=== PATIENT | male | born 1995 | race Caucasian/White ===

== ENCOUNTER 2018-10-09 17:59 | Emergency (ER) | payer MEDICAID, SELFPAY ==
[2018-10-09 18:00] VITALS: BP 133/82; PULSE 138; RESP 20; TEMP 36.6; O2SAT 98; BMI 29.9
--- NOTE | 2018-10-09 18:11 | EKG12_ITS ---
Test Reason : CP Blood Pressure : / mmHG Vent. Rate : 091 BPM Atrial Rate : 091 BPM P-R Int : 162 ms QRS Dur : 166 ms QT Int : 442 ms P-R-T Axes : 044 057 129 degrees QTc Int : 543 ms Normal sinus rhythm Left bundle branch block Abnormal ECG Confirmed by BLANCA MILLER, SHADY ([id number]), video news editor CRYSTAL HARO ([id number]) on 10/11/2018 4:22:52 PM Referred By: DANIELA/SVETLANA Confirmed By:SHADY RIOS MD
[2018-10-09] MEDS: Haloperidol Lactate 5 MG/ML Vial IM (18:12)
[2018-10-09] MEDS: LORazepam 2 MG/ML Syringe IV (18:15)
[2018-10-09 18:59] LABS: Alcohol, Blood (Medical)-Serum < 3.0 mg/dL
--- NOTE | 2018-10-09 19:28 | ED.RN ---
md aware that pt is unable to provide u/a at this time. no new orders given.
[2018-10-09 20:37] VITALS: BP 107/60; PULSE 84; RESP 18
[2018-10-09 20:42] LABS: Amphetamine Urine VISTA POSITIVE (<1000 ng/mL); Barbiturate Urine VISTA NEGATIVE (< 200 ng/mL); Benzodiazepine Urine VISTA NEGATIVE (< 200 ng/mL); Cocaine Urine VISTA NEGATIVE (< 300 ng/mL); Ecstacy Urine VISTA NEGATIVE (< 500 ng/mL); Methadone Urine VISTA NEGATIVE (< 300 ng/mL); PCP Urine VISTA NEGATIVE (< 25 ng/mL); THC Urine VISTA POSITIVE (< 50 ng/mL); Vista UDS pH Range 6
[2018-10-09 20:57] VITALS: BP 110/59; PULSE 88; RESP 16
--- NOTE | 2018-10-09 21:00 | ED.DCSUM_ITS ---
- ER Visit Summary Date of Service: 10/09/18 Chief Complaint: [Tachycardia and agitation] History of Present Illness: The patient is a 23 M [presents the emergency department tachycardia and agitation today. Patient presents via EMS. Patient apparently was given adenosine by EMS for the tachycardia which did not seem to make any improvement in patient's tachycardia. Patient admits to smoking marijuana that was laced with methamphetamines this evening. Patient denies any chest pain. He denies any shortness of breath. He just feels anxious and tingly. Patient is having a hard time holding still. He has some ballistic movements. Denies any recent illness. He has no medical history.] Physical Examination: HEENT-PERRLA, EOMI. Cranial nerves II through XII grossly intact. TMs clear. Mucous membranes moist. No adenopathy. Cardiovascular-regular rate and rhythm without murmur or ectopy Lungs-clear to auscultation, chest wall stable without crepitus or subcu emphysema Abdomen-normoactive bowel sounds, soft, nontender, no rebound or rigidity, no peritoneal signs. Extremities-intact ?4, normal range of motion, normal pulses, atraumatic [] Test Results: [Alcohol was negative. Tox ecology screen was positive for marijuana and amphetamines.] Emergency Department Course and Treatment: [Patient was medicated with Ativan 2 mg IV and given Haldol 5 mg IM. Patient was observed in the department for 3 hours. Patient symptoms resolved.] Treatment Plan: [Patient has a warrant for his arrest and will be turned over to care of police] Disposition: [Discharged home stable condition] Impression: [Illicit drug use-THC and methamphetamines] This note was generated with [employer] dictation software. It may contain incorrect words, spelling, and punctuation that were not noted in review of the chart prior to signing ED Disposition - Plan for ED Patient: Referrals: Care Physician,No Primary [Primary Care Provider] -
--- NOTE | 2018-10-09 21:00 | ED.DEP ---
ED Disposition - Plan for ED Patient: Instructions: ED Drug Abuse General Referrals: Care Physician,No Primary [Primary Care Provider] - 3-5 Days (josette ) Leoncio Cueva III, MD [STAFF PHYSICIAN] - 3-5 Days
== END 2018-10-09 21:40 ==
PROVIDERS: Emergency Provider Emergency Medicine
DX: F12.90 Cannabis use, unspecified, uncomplicated (principal); F15.90 Other stimulant use, unspecified, uncomplicated; Z72.0 Tobacco use
CPT/HCPCS: 80307; 80320; 93005; 96372; 96374; 99284; J7030; A4216; G0480; J0153

== ENCOUNTER 2018-12-26 20:53 | Emergency (ER) | payer MEDICAID, SELFPAY ==
[2018-12-26 20:53] VITALS: BP 135/94; PULSE 96; RESP 18; TEMP 36.6; O2SAT 98; BMI 28.5
[2018-12-26] MEDS: Mag Hydrox/Al Hydrox/Simeth 30 ML UDC PO (22:46)
[2018-12-26 22:55] LABS: Absolute Lymphocyte Count 3.33 X10^3/ul (0.83-4.51); Absolute Neutrophil Count 4.9 X10^3/uL (2.0-7.7); Basophil# 0.06 X10^3/uL; Basophil% 0.6 % (0-1); Eosinophil# 0.49 X10^3/uL; Eosinophils% 5.1 % (0-5); Hematocrit 46.6 % (40-54); Hemoglobin 15.4 g/dl (13.0-16.5); Lymphocyte # 3.33 X10^3/ul (4.0); Lymphocyte % 34.4 % (19-41); Mean Corpuscular Hgb 28.1 pg (27.0-32.0); Mean Platelet Vol. 8.9 fl (6.2-12.0); Monocyte# 0.85 X10^3/uL; Monocyte% 8.8 % (0-10); Neutrophil # 4.94 X10^3/uL (2.7-7.7); Neutrophil % 50.9 % (47-70); Platelet Count 319 K/mm3 (150-450); RBC Distribution Width CV 12.8 % (11.6-14.6); RBC Distribution Width SD 39.6 fl (35.1-43.9); Red Blood Count 5.48 M/mm3 (4.6-6.2); White Blood Count 9.7 K/mm3 (4.4-11.0)
[2018-12-26 22:56] LABS: POSITIVE COUNT NO; POSITIVE DIFFERENTIAL NO; POSITIVE MORPHOLOGY NO
[2018-12-26 23:06] LABS: AST(SGOT) 13 U/L (15-37); Alanine Aminotransfer ALT/SGPT 23 U/L (16-61); Albumin, Serum 3.6 g/dL (3.2-5.0); Alkaline Phosphatase 70 U/L (45-117); Anion Gap 6 (5-15); BUN 12 mg/dL (7-18); BUN/Creat Ratio 13.1 RATIO (10-20); Calcium,Total 8.8 mg/dL (8.5-10.1); Chloride 103 mmol/L (98-107); Creatinine, Serum 0.91 mg/dL (0.70-1.30); EST Glomerular Filtration Rate 111 mL/min (>60); Est Glom Filt Rate - Afr Amer 135 mL/min (>60); Estimated Creatinine Clearance 115.88 ml/min; Globulin 3.5 g/dL (2.2-4.2); Glucose 87 mg/dL (74-106); Lipase 112 U/L (73-393); Potassium 3.8 mmol/L (3.5-5.1); Protein, Total 7.1 g/dL (6.4-8.2); Sodium Level 143 mmol/L (136-145)
--- NOTE | 2018-12-26 23:52 | ED.VISSUMM ---
- ER Visit Summary Date of Service: 12/26/18 Chief Complaint: Abdominal pain History of Present Illness: The patient is a 23 M presenting with abdominal pain. He states this started 3 days ago. Pain is in the epigastric area. He has had nausea and vomiting x2. He has had diarrhea x1. Denies blood in his stool or emesis. Denies fever. Denies other complaints. Physical Examination: Vitals are stable. Patient is afebrile. Alert no acute distress. HEENT exam is unremarkable. Neck is supple. Lungs are clear and equal bilaterally. Heart is regular rate and rhythm. Abdomen is soft epigastric tenderness with no guarding or rebound Extremities are unremarkable. Skin is warm and dry. Remainder of exam is unremarkable. Emergency Department Course and Treatment: CBC, chemistries unremarkable. Liver lipase are normal. Patient was given a GI cocktail. On repeat evaluation his pain has resolved. His abdomen is soft and nontender. He is given a prescription for Pepcid. Advised to follow-up with his primary care physician. Advised return to ED for worsening complaints. Disposition: Discharge home Impression: Abdominal pain This note was generated with [employer] dictation software. It may contain incorrect words, spelling, and punctuation that were not noted in review of the chart prior to signing ED Disposition - Plan for ED Patient: Instructions: ED Abdominal Pain Unkn Cause Prescriptions: Famotidine [Pepcid] 20 mg PO BID #28 tablet Referrals: Vince Hays MD [Primary Care Provider] -
[2018-12-27 00:10] VITALS: BP 122/74; PULSE 67; RESP 18; O2SAT 99
== END 2018-12-27 00:13 | disposition home or self-care (01) ==
LOC: ED 21:38
PROVIDERS: Emergency Provider Emergency Medicine; Family Provider Pediatrics; PCP Pediatrics
DX: R10.13 Epigastric pain (principal); Z72.0 Tobacco use
CPT/HCPCS: 80053; 83690; 85025; 99284; A4216

== ENCOUNTER 2019-02-05 15:12 | Emergency (ER) | payer MEDICAID, SELFPAY ==
[2019-02-05 15:13] VITALS: BP 130/78; PULSE 94; RESP 16; TEMP 36.6; O2SAT 100; BMI 27.4
--- NOTE | 2019-02-05 15:26 | RAD_ITS ---
STUDY: X-RAY CHEST REASON FOR EXAM: Male, 23 years old. Chest pain TECHNIQUE: Frontal view of the chest COMPARISON: 03/21/2016. FINDINGS: The lungs are clear. There are no pleural effusions. There is no pneumothorax. The heart is enlarged, but stable in size. Again noted are sternotomy wires. The visualized osseous structures are within normal limits. RAD/Chest 1 View (Portable) IMPRESSION: No acute thoracic pathology. Electronically Signed: Juan David Blue, at 15:43 EDT Tel , Service support ,
--- NOTE | 2019-02-05 15:26 | EKG12_ITS ---
Test Reason : CP Blood Pressure : / mmHG Vent. Rate : 090 BPM Atrial Rate : 090 BPM P-R Int : 152 ms QRS Dur : 170 ms QT Int : 428 ms P-R-T Axes : 030 027 150 degrees QTc Int : 523 ms Normal sinus rhythm Left bundle branch block Abnormal ECG Confirmed by BLANCA MILLER, SHADY ([id number]), editorial director ALLYSSA ALCANTARA ([id number]) on 02/08/2019 2:11:43 PM Referred By: KELL Confirmed By:SHADY RIOS MD
[2019-02-05] MEDS: LORazepam 1 MG Tablet PO (15:30)
[2019-02-05 15:36] LABS: Absolute Lymphocyte Count 2.22 X10^3/ul (0.83-4.51); Absolute Neutrophil Count 4.9 X10^3/uL (2.0-7.7); Basophil# 0.06 X10^3/uL; Basophil% 0.8 % (0-1); Eosinophil# 0.15 X10^3/uL; Eosinophils% 1.9 % (0-5); Hematocrit 47.9 % (40-54); Hemoglobin 16.3 g/dl (13.0-16.5); Lymphocyte # 2.22 X10^3/ul (4.0); Lymphocyte % 28.1 % (19-41); Mean Corpuscular Hgb 28.4 pg (27.0-32.0); Mean Corpuscular Volume 83.6 fL (80-94); Mean Platelet Vol. 9.1 fl (6.2-12.0); Monocyte# 0.56 X10^3/uL; Monocyte% 7.1 % (0-10); Platelet Count 340 K/mm3 (150-450); Red Blood Count 5.73 M/mm3 (4.6-6.2); White Blood Count 7.9 K/mm3 (4.4-11.0)
[2019-02-05 15:38] LABS: POSITIVE COUNT NO; POSITIVE DIFFERENTIAL NO; POSITIVE MORPHOLOGY NO
[2019-02-05 15:47] LABS: Anion Gap 7 (5-15); BUN 21 mg/dL (7-18); BUN/Creat Ratio 16.4 RATIO (10-20); Calcium,Total 9.4 mg/dL (8.5-10.1); Chloride 107 mmol/L (98-107); Creatinine, Serum 1.28 mg/dL (0.70-1.30); EST Glomerular Filtration Rate 75 mL/min (>60); Est Glom Filt Rate - Afr Amer 91 mL/min (>60); Estimated Creatinine Clearance 79.41 ml/min; Glucose 65 mg/dL (74-106); Potassium 3.2 mmol/L (3.5-5.1); Sodium Level 142 mmol/L (136-145)
[2019-02-05 16:01] VITALS: BP 130/74; PULSE 76; RESP 20; O2SAT 100
--- NOTE | 2019-02-05 16:43 | ED.VISSUMM ---
- ER Visit Summary Date of Service: 02/05/19 Chief Complaint: Chest pain History of Present Illness: The patient is a 23 M who states that several hours (3-4) he smoked and snorted methamphetamines. He states he has subsequently felt his heart beating stronger faster and now has a aching chest pain. He reports a cardiac history having had open heart surgery around the age of 17. He tells me it was for what sounds like hypertrophic cardiomyopathy. He is not currently see a transmitter chief. He does not see a family doctor. He is supposed to be taking aspirin but does not. He is worried he may . He states that he is interested in rehab and plans to go to rehab on Thursday when his [id number] goes. Physical Examination: Afebrile vital signs are stable Gen: Well-nourished well-developed Head: Normocephalic atraumatic Eyes: Perrl EOMI ENT: TMs clear no rhinorrhea moist mucous membranes Neck: Supple no lymphadenopathy no JVD nontender CVS: Regular rate rhythm no murmurs normal S1-S2 Respiratory: No distress clear to auscultation bilaterally chest nontender Abdomen: Soft nontender nondistended normal bowel sounds no masses Back: Nontender Extremity: Nontender no edema Skin: Normal color no rash Neuro: alert orientated ?3 CN II-XII intact normal strength sensation cerebellar Psych: Patient appears anxious Test Results: EKG shows a sinus rhythm at a rate of 90 with a left bundle branch block. This is a known left bundle branch block. CBC and chemistry showed a potassium 3.2 glucose of 65. Troponin is negative. Chest x-ray is negative. Emergency Department Course and Treatment: Mario received a p.o. Ativan and offered food. He refused to eat anything. He spelt the orange juice that we tried to give him. I am going to give him an amp of D50. When I go to speak with the patient and reexamined him him he is completely disinterested in what I have to say turns away from me and closes his eyes. Patient will be discharged home with clear instructions to stop doing illegal drugs that will kill him. He has a plan for rehab and I strongly suggest he goes through with it. Impression: 1. Chest pain secondary to methamphetamine abuse 2. Hypoglycemia This note was generated with [employer] software. It may contain incorrect words, spelling, and punctuation that were not noted in review of the chart prior to signing ED Disposition - Plan for ED Patient: Disposition: Home or Assisted Living Instructions: Understanding Methamphetamine Abuse and Addiction Referrals: [facility] [STAFF PHYSICIAN] -
[2019-02-05] MEDS: Dextrose 50%-Water 25 GM/50 ML DISP.SYRIN IV (16:54)
--- NOTE | 2019-02-05 16:54 | ED.RN ---
PT REFUSING TO EAT SANDWICH OR COOKIE; DID DRINK OJ. NOTIFIED AND ORDER OBTAINED
[2019-02-05 17:23] VITALS: BP 115/65; PULSE 70; RESP 19; O2SAT 97
== END 2019-02-05 17:27 | disposition home or self-care (01) ==
PROVIDERS: Emergency Provider Emergency Medicine
DX: R07.9 Chest pain, unspecified (principal); F15.10 Other stimulant abuse, uncomplicated; E16.2 Hypoglycemia, unspecified; I44.7 Left bundle-branch block, unspecified; Z91.14 Patient's other noncompliance with medication regimen; Z72.0 Tobacco use
CPT/HCPCS: 71045; 80048; 84484; 85025; 93005; 96374; 99284

== ENCOUNTER 2019-03-27 12:10 | Emergency (ER) | payer MEDICAID, SELFPAY ==
[2019-03-27] VITALS (11 sets, daily range): BP systolic 102–119; BP diastolic 56–72; PULSE 56–118; RESP 14–38; TEMP 36.6; O2SAT 97–100; BMI 25.5
--- NOTE | 2019-03-27 12:21 | EKG12_ITS ---
Test Reason : ARRHYTHMIA Blood Pressure : / mmHG Vent. Rate : 111 BPM Atrial Rate : 111 BPM P-R Int : 136 ms QRS Dur : 154 ms QT Int : 408 ms P-R-T Axes : 038 031 195 degrees QTc Int : 554 ms Sinus tachycardia with Premature ventricular complexes or Fusion complexes Left bundle branch block Abnormal ECG Confirmed by JONAH MILLER, BERNIE ([id number]), editor producer ALLYSSA ALCANTARA ([id number]) on 03/29/2019 11:31:18 AM Referred By: KELL Confirmed By:BERNIE MCKENZIE MD
--- NOTE | 2019-03-27 12:21 | RAD_ITS ---
STUDY: X-RAY CHEST REASON FOR EXAM: Male, 23 years old. History of heart surgery 6 years ago for valve reconstruction. Shortness of breath with chest pain. TECHNIQUE: Single frontal view of the chest. COMPARISON: February 05, 2019 FINDINGS: Stable mild hyperexpansion. There is no demonstrated pleural abnormality. Stable sternotomy wires with borderline cardiomegaly. Normal mediastinum and catherine. Normal visualized pulmonary arteries. Normal visualized aortic arch and descending thoracic aorta. Normal visualized thoracic spine. Normal visualized ribs, clavicles, and shoulders. There is no demonstrated abnormality of the visualized soft tissue structures of the upper abdomen. RAD/Chest 1 View (Portable) IMPRESSION: No interval change and no acute superimposed finding. Electronically Signed: Christophe Jacob MD at 12:56 EDT , Service support ,
--- NOTE | 2019-03-27 12:22 | ED.DCSUM_ITS ---
History of Present Illness Chief Complaint: Chest Pain Informant: Patient, EMS Onset: Hours - 1 Activity at onset: - - about 20-30 min after smoking methamphetamine and marijuana Timing: Continuous Quality: - - can't breath Current Severity: Severe Maximum Severity: Severe Worsened by: Nothing Relieved by: Nothing Associated Symptoms: - - racing heartbeat, tingling left chest. Negative for: Cough Chest Pain: None Narrative: Patient states he had open heart cardiac reconstructive surgery several years ago. He denies having any other medical problems. Past Medical History - Allergies and Home Meds Allergies/Adverse Reactions: Allergies No Known Allergies Allergy (Verified 03/27/19 12:18) Primary Care Physician: Care Physician,No Primary [Primary Care Provider] - Surgical History: - - Open heart surgery, details unknown Smoking Status: Current every day smoker Drugs: Marijuana, - - Methamphetamine; no other known drugs Review of Systems General: Reports: Malaise. Denies: Chills, Fever, Sweats Eyes: Denies: Visual changes - bilaterally, Diplopia ENT: Denies: Rhinorrhea, Sore throat Cardiovascular: Reports: Heart racing. Denies: Chest pain Respiratory: Reports: Dyspnea. Denies: Cough Gastrointestinal: Denies: Abdominal pain, Nausea, Vomiting, Diarrhea, Melena, Hematochezia Genitourinary: Denies: Dysuria, Hematuria, Frequency Musculoskeletal: Denies: Back pain, Swelling, Extremity Pain Skin: Denies: Rash, Wounds Neurological: Reports: Parasthesia - Left chest only. No numbness in extremities.. Denies: Headache, Weakness Psych: Reports: Anxiety. Denies: Suicidal thoughts Physical Exam Vital Signs/Narrative: Vital Signs Temp Pulse Resp BP Pulse Ox 03/27/19 12:11 97.8 F 118 H 38 H 113/64 100 Inital Vital Signs reviewed: Yes General: Well nourished, Well developed, Acute Distress - Respiratory Head: Normocephalic, Atraumatic Eyes: Perrl, EOMI ENT: Moist mucous membranes, No rhinorrhea, - - No stridor Neck: Supple, Nontender, No JVD Cardiovascular: Regular rate, Regular rhythm, No murmurs, Tachycardia Respiratory: CTA bilaterally - With equal breath sounds bilaterally, trachea midline, Chest nontender Abdomen: Soft, Nontender, Nondistended, Normal bowel sounds Back: Nontender, Normal Inspection Extremities: Nontender, No edema. Negative for: Calf Tenderness Skin: Normal color, No rash, No Trauma Neurological: Alert, Oriented x3, Cranial nerves II-XII grossly intact, Normal Strength, Normal Sensation Psychological: - - Very anxious Diagnostic/Tx/Re-eval Impressions Chest X-Ray 03/27/19 12:21 IMPRESSION: No interval change and no acute superimposed finding. Electronically Signed: Christophe Jacob MD at 12:56 EDT , Service support , Laboratory Tests 03/27/19 03/27/19 03/27/19 Range/Units 17:25 14:54 12:15 WBC (4.4-11.0) K/mm3 RBC (4.6-6.2) M/mm3 Hgb (13.0-16.5) g/dL Hct (40-54) % MCV (80-94) fL MCH (27.0-32.0) pg MCHC (32-36) g/dL RDW Std Deviation (35.1-43.9) fl RDW Coeff of Leighton (11.6-14.6) % Plt Count (150-450) K/mm3 MPV (6.2-12.0) fl Immature Gran % (Auto) (0.0-0.9) % Neut % (Auto) (47-70) % Lymph % (Auto) (19-41) % [place] % (Auto) (0-10) % Eos % (Auto) (0-5) % Baso % (Auto) (0-1) % Absolute Neuts (auto) (2.0-7.7) X10^3/uL Absolute Lymphs (auto) (0.83-4.51) X10^3/uL Nucleated RBC % (0-5) % Sodium 143 (136-145) mmol/L Potassium 3.8 3.0 L (3.5-5.1) mmol/L Chloride 109 H (98-107) mmol/L Carbon Dioxide 22.0 (21.0-32.0) mmol/L Anion Gap 12 (5-15) BUN 20 H (7-18) mg/dL Creatinine 1.03 (0.70-1.30) mg/dL Estim Creat Clear Calc 102.38 ml/min Est GFR (MDRD) Af Amer 117 (>60) mL/min Est GFR (MDRD) Non-Af 97 (>60) mL/min BUN/Creatinine Ratio 19.4 (10-20) RATIO Glucose 99 (74-106) mg/dL Calcium 9.0 (8.5-10.1) mg/dL Troponin I < 0.015 < 0.015 (<0.045) ng/mL Urine Opiates Screen NEGATIVE (< 300 ng/mL) Urine Methadone Screen NEGATIVE (< 300 ng/mL) Ur Barbiturates Screen NEGATIVE (< 200 ng/mL) Ur Phencyclidine Scrn NEGATIVE (< 25 ng/mL) Ur Amphetamines Screen POSITIVE H (<1000 ng/mL) U Methamphetamin-MDMA POSITIVE H (< 500 ng/mL) U Benzodiazepines Scrn NEGATIVE (< 200 ng/mL) Urine Cocaine Screen NEGATIVE (< 300 ng/mL) U Cannabinoids Screen POSITIVE H (< 50 ng/mL) Ur Drug Screen Comment 03/27/19 Range/Units 12:15 WBC 8.1 (4.4-11.0) K/mm3 RBC 4.78 (4.6-6.2) M/mm3 Hgb 13.7 (13.0-16.5) g/dL Hct 40.3 (40-54) % MCV 84.3 (80-94) fL MCH 28.7 (27.0-32.0) pg MCHC 34.0 (32-36) g/dL RDW Std Deviation 39.8 (35.1-43.9) fl RDW Coeff of Leighton 13.0 (11.6-14.6) % Plt Count 377 (150-450) K/mm3 MPV 8.6 (6.2-12.0) fl Immature Gran % (Auto) 0.400 (0.0-0.9) % Neut % (Auto) 58.3 (47-70) % Lymph % (Auto) 31.3 (19-41) % [place] % (Auto) 7.8 (0-10) % Eos % (Auto) 1.6 (0-5) % Baso % (Auto) 0.6 (0-1) % Absolute Neuts (auto) 4.7 (2.0-7.7) X10^3/uL Absolute Lymphs (auto) 2.54 (0.83-4.51) X10^3/uL Nucleated RBC % 0 (0-5) % Sodium (136-145) mmol/L Potassium (3.5-5.1) mmol/L Chloride (98-107) mmol/L Carbon Dioxide (21.0-32.0) mmol/L Anion Gap (5-15) BUN (7-18) mg/dL Creatinine (0.70-1.30) mg/dL Estim Creat Clear Calc ml/min Est GFR (MDRD) Af Amer (>60) mL/min Est GFR (MDRD) Non-Af (>60) mL/min BUN/Creatinine Ratio (10-20) RATIO Glucose (74-106) mg/dL Calcium (8.5-10.1) mg/dL Troponin I (<0.045) ng/mL Urine Opiates Screen (< 300 ng/mL) Urine Methadone Screen (< 300 ng/mL) Ur Barbiturates Screen (< 200 ng/mL) Ur Phencyclidine Scrn (< 25 ng/mL) Ur Amphetamines Screen (<1000 ng/mL) U Methamphetamin-MDMA (< 500 ng/mL) U Benzodiazepines Scrn (< 200 ng/mL) Urine Cocaine Screen (< 300 ng/mL) U Cannabinoids Screen (< 50 ng/mL) Ur Drug Screen Comment - Rhythm Strip Rhythm Strip: Sinus Tach Rate: 111 Ectopy: None - EKG Initial EKG Interpretation: Sinus Tachycardia, LBBB Prior: Unchanged Treatment - Dyspnea: Oxygen, - - ativan - Medical Decision Making Patient was given Ativan, his chest x-ray shows no pneumothorax or other acute abnormality. This helped a lot with his symptoms, he said he felt like his heart was beating hard, but not racing or skipping anymore. He states he is having some tingling in his left arm as well. His troponin is negative his EKG shows a stable left bundle branch block which appears to be a result of his cardiac surgery, details of this are unknown. However, he became sleepy and slept much of the time in the ER. He became difficult to arouse and so continued to be monitored. His vital signs remained very stable, he did not have any tachycardia recur. At one point, he was borderline bradycardic and it was seen that he was in a junctional rhythm temporarily. He would go into this for less than 10 seconds at a time, did not seem to have any symptoms or hypotension with it. It is possible this happens to him often, at baseline. His troponin was repeated and was again negative. I also repeated his potassium, his initial reading was 3.0 which I suspected was from shift caused by acute respiratory alkalosis since he was hyperventilating and extremely anxious. The repeat was 3.8, within normal limits, supporting this. He was observed for a total of 10 hours and discharged home in stable improved condition, ambulatory. ED Disposition - Plan for ED Patient: Disposition: Home or Assisted Living Diagnosis: Methamphetamine abuse Instructions: Understanding Methamphetamine Abuse and Addiction Referrals: [facility] [STAFF PHYSICIAN] - As soon as possible (for help with drug addiction)
[2019-03-27] MEDS: LORazepam 2 MG/ML Syringe 1 MG IV (12:25)
--- NOTE | 2019-03-27 12:31 | ED.RN ---
hyperventilation. didier extremities tingling and hands cramping per pt. ativan given encouraged slow breathing pt calmed. hr came down from 120s to 90s. resting quietly.
[2019-03-27 12:33] LABS: Absolute Lymphocyte Count 2.54 X10^3/uL (0.83-4.51); Absolute Neutrophil Count 4.7 X10^3/uL (2.0-7.7); Basophil# 0.05 X10^3/uL; Basophil% 0.6 % (0-1); Eosinophil# 0.13 X10^3/uL; Eosinophils% 1.6 % (0-5); Hematocrit 40.3 % (40-54); Hemoglobin 13.7 g/dL (13.0-16.5); Lymphocyte # 2.54 X10^3/ul (4.0); Lymphocyte % 31.3 % (19-41); Mean Corpuscular Hgb 28.7 pg (27.0-32.0); Mean Corpuscular Volume 84.3 fL (80-94); Mean Platelet Vol. 8.6 fl (6.2-12.0); Monocyte# 0.63 X10^3/uL; Monocyte% 7.8 % (0-10); NRBC Flagged by Analyzer 0 % (0-5); Neutrophil # 4.73 X10^3/uL (2.7-7.7); Neutrophil % 58.3 % (47-70); Platelet Count 377 K/mm3 (150-450); RBC Distribution Width SD 39.8 fl (35.1-43.9); Red Blood Count 4.78 M/mm3 (4.6-6.2); White Blood Count 8.1 K/mm3 (4.4-11.0)
--- NOTE | 2019-03-27 12:41 | ED.RN ---
sats 69% while resting on ra. paced on 2l o2. sats 95%. no distress noted
[2019-03-27 12:46] LABS: Anion Gap 12 (5-15); BUN 20 mg/dL (7-18); BUN/Creat Ratio 19.4 RATIO (10-20); Chloride 109 mmol/L (98-107); Creatinine, Serum 1.03 mg/dL (0.70-1.30); EST Glomerular Filtration Rate 97 mL/min (>60); Est Glom Filt Rate - Afr Amer 117 mL/min (>60); Estimated Creatinine Clearance 102.38 ml/min; Glucose 99 mg/dL (74-106); Sodium Level 143 mmol/L (136-145)
[2019-03-27] MEDS: 0.9% Normal Saline 1,000 ML 999 ML IV (13:06)
--- NOTE | 2019-03-27 13:45 | ED.RN ---
pt drowsy from ativan. denies ability to urinate at this time
--- NOTE | 2019-03-27 14:38 | ED.RN ---
PT NOT STAYING AWAKE/COOPERATING FOR URINE SAMPLE AT THIS TIME.
[2019-03-27 15:39] LABS: Amphetamine Urine VISTA POSITIVE (<1000 ng/mL); Barbiturate Urine VISTA NEGATIVE (< 200 ng/mL); Benzodiazepine Urine VISTA NEGATIVE (< 200 ng/mL); Cocaine Urine VISTA NEGATIVE (< 300 ng/mL); Ecstacy Urine VISTA POSITIVE (< 500 ng/mL); Methadone Urine VISTA NEGATIVE (< 300 ng/mL); PCP Urine VISTA NEGATIVE (< 25 ng/mL); THC Urine VISTA POSITIVE (< 50 ng/mL); Vista UDS pH Range 6
--- NOTE | 2019-03-27 16:01 | ED.RN ---
PT RESTING IN BED, NO SIGNS OF DISTRESS.
[2019-03-27 17:54] LABS: Potassium 3.8 mmol/L (3.5-5.1)
--- NOTE | 2019-03-27 21:30 | ED.RN ---
PT AWAKES TO NAME, ORIENTED TO PERSON AND PLACE, DENIES CURRENT NEEDS. CLOSES EYES SOON THIS RN STOP TALKING. UPDATED.
== END 2019-03-27 22:25 | disposition home or self-care (01) ==
PROVIDERS: Emergency Provider Emergency Medicine
DX: F15.10 Other stimulant abuse, uncomplicated (principal); I44.7 Left bundle-branch block, unspecified; F12.90 Cannabis use, unspecified, uncomplicated; F17.200 Nicotine dependence, unspecified, uncomplicated
CPT/HCPCS: 71045; 80048; 80307; 84132; 84484; 85025; 93005; 96361; 96374; 99285; P9612; A4216

== ENCOUNTER 2019-06-08 00:16 | Emergency (ER) | payer SELFPAY ==
[2019-05-09 14:55] VITALS: BMI 27.4
[2019-06-08 00:17] VITALS: BP 143/87; PULSE 101; RESP 16; TEMP 36.6; O2SAT 100; BMI 25.3
--- NOTE | 2019-06-08 00:28 | RAD_ITS ---
STUDY: X-RAY CHEST REASON FOR EXAM: Male, 23 years old. Pain TECHNIQUE: PA and lateral COMPARISON: 05/09/2019 FINDINGS: The lungs are clear and expanded. There is no demonstrated pleural abnormality. Normal size heart. Normal mediastinum and catherine. Normal visualized pulmonary arteries. Normal visualized aortic arch and descending thoracic aorta. Normal visualized thoracic spine. Normal visualized ribs, clavicles, and shoulders. There is no demonstrated abnormality of the visualized soft tissue structures of the upper abdomen. RAD/Chest PA and Lateral IMPRESSION: Normal x-ray examination of the chest. Electronically Signed: Daniel Huizar MD at 1:10 EST , Service support ,
--- NOTE | 2019-06-08 00:28 | EKG12_ITS ---
Test Reason : CP Blood Pressure : / mmHG Vent. Rate : 098 BPM Atrial Rate : 098 BPM P-R Int : 154 ms QRS Dur : 154 ms QT Int : 400 ms P-R-T Axes : 047 036 134 degrees QTc Int : 510 ms Normal sinus rhythm Left bundle branch block Abnormal ECG Confirmed by ISRRAEL DURAN ([id number]), map editor ALLYSSA ALCANTARA ([id number]) on 06/10/2019 11:15:18 AM Referred By: MELANIE Confirmed By:ISRRAEL DURAN
--- NOTE | 2019-06-08 00:31 | ED.VIS.GEN ---
History of Present Illness Chief Complaint: Chest Pain Narrative: Patient is a 23-year-old male who presents with chest pain after methamphetamine use. He has multiple prior visits with similar presentations. After methamphetamine use he developed left arm tingling and left-sided chest pain. Currently his symptoms have improved and he only complains of a little bit of tightness on the left side of his chest. He does have a history of prior open heart surgery. He does not know exactly what this was for but based on his description of enlarged heart muscle I suspect this was related to hypertrophic obstructive cardiomyopathy. Past Medical History - Allergies and Home Meds Allergies/Adverse Reactions: Allergies No Known Allergies Allergy (Verified 05/09/19 14:55) Primary Care Physician: NOT,DEFINED [NON-STAFF] - Prior records reviewed: Yes Past Medical History: - - heart problem likely HOCM Surgical History: - - Open heart surgery, details unknown Smoking Status: Current every day smoker Review of Systems All systems negative except as indicated General: Denies: Fever Cardiovascular: Reports: Chest pain Respiratory: Denies: Dyspnea Gastrointestinal: Denies: Nausea, Vomiting Neurological: Reports: - - Dizziness Physical Exam Vital Signs/Narrative: Vital Signs Temp Pulse Resp BP Pulse Ox 06/08/19 00:17 98 F 101 H 16 143/87 H 100 Inital Vital Signs reviewed: Yes General: Well nourished, Well developed Head: Normocephalic Eyes: EOMI ENT: Moist mucous membranes Neck: Supple Cardiovascular: Regular rate, Regular rhythm Respiratory: No distress, CTA bilaterally Abdomen: Soft Extremities: Nontender, - - 2+ symmetric radial pulses Skin: Normal color Neurological: Alert Psychological: Normal affect Diagnostic/Tx/Re-eval Impressions Chest X-Ray 06/08/19 00:28 IMPRESSION: Normal x-ray examination of the chest. Electronically Signed: Daniel Huizar MD at 1:10 EST , Service support , 06/08/19 00:28 Chest PA and Lateral [RAD] Stat Laboratory Results 06/08/19 06/08/19 00:46 00:46 WBC 8.1 RBC 4.74 Hgb 13.7 Hct 42.4 MCV 89.5 MCH 28.9 MCHC 32.3 RDW Std Deviation 43.1 RDW Coeff of Leighton 13.2 Plt Count 300 MPV 8.3 Immature Gran % (Auto) 0.400 Neut % (Auto) 57.4 Lymph % (Auto) 32.5 [place] % (Auto) 6.6 Eos % (Auto) 2.2 Baso % (Auto) 0.9 Absolute Neuts (auto) 4.6 Absolute Lymphs (auto) 2.63 Nucleated RBC % 0 Sodium 143 Potassium 3.7 Chloride 108 H Carbon Dioxide 30.0 Anion Gap 5 BUN 15 Creatinine 1.00 Estim Creat Clear Calc 101.65 Est GFR (MDRD) Af Amer 121 Est GFR (MDRD) Non-Af 100 BUN/Creatinine Ratio 15.1 Glucose 98 Calcium 8.9 Troponin I < 0.015 - Medical Decision Making EKG shows sinus rhythm at a rate of 98 with a left bundle branch block. Laboratory studies and imaging negative as above. Patient has had multiple prior similar presentations associate with methamphetamine use. He does not have any evidence of cardiac ischemia at this time. He has no ischemic changes on EKG. His troponin is negative. His symptoms have improved. He was counseled on drug cessation and was discharged. ED Disposition - Plan for ED Patient: Disposition: Home or Assisted Living Diagnosis: Methamphetamine abuse, Chest pain Instructions: CHEST PAIN, Uncertain Cause, Drug Abuse Referrals: NOT,DEFINED [NON-STAFF] - [facility] [STAFF PHYSICIAN] -
[2019-06-08 00:49] VITALS: O2SAT 100
[2019-06-08 00:58] LABS: Absolute Lymphocyte Count 2.63 X10^3/uL (0.83-4.51); Absolute Neutrophil Count 4.6 X10^3/uL (2.0-7.7); Basophil# 0.07 X10^3/uL; Basophil% 0.9 % (0-1); Eosinophil# 0.18 X10^3/uL; Eosinophils% 2.2 % (0-5); Hematocrit 42.4 % (40-54); Hemoglobin 13.7 g/dL (13.0-16.5); Lymphocyte # 2.63 X10^3/ul (4.0); Lymphocyte % 32.5 % (19-41); Mean Corp Hgb Conc 32.3 g/dL (32-36); Mean Corpuscular Hgb 28.9 pg (27.0-32.0); Mean Corpuscular Volume 89.5 fL (80-94); Mean Platelet Vol. 8.3 fl (6.2-12.0); Monocyte# 0.53 X10^3/uL; Monocyte% 6.6 % (0-10); NRBC Flagged by Analyzer 0 % (0-5); Neutrophil # 4.64 X10^3/uL (2.7-7.7); Neutrophil % 57.4 % (47-70); Platelet Count 300 K/mm3 (150-450); RBC Distribution Width CV 13.2 % (11.6-14.6); RBC Distribution Width SD 43.1 fl (35.1-43.9); Red Blood Count 4.74 M/mm3 (4.6-6.2); White Blood Count 8.1 K/mm3 (4.4-11.0)
[2019-06-08 01:12] LABS: Anion Gap 5 (5-15); BUN 15 mg/dL (7-18); BUN/Creat Ratio 15.1 RATIO (10-20); Calcium,Total 8.9 mg/dL (8.5-10.1); Chloride 108 mmol/L (98-107); EST Glomerular Filtration Rate 100 mL/min (>60); Est Glom Filt Rate - Afr Amer 121 mL/min (>60); Estimated Creatinine Clearance 101.65 ml/min; Glucose 98 mg/dL (74-106); Potassium 3.7 mmol/L (3.5-5.1); Sodium Level 143 mmol/L (136-145)
[2019-06-08 01:41] VITALS: BP 138/74; PULSE 87; RESP 15; O2SAT 98
== END 2019-06-08 01:41 | disposition home or self-care (01) ==
PROVIDERS: Emergency Provider Emergency Medicine
DX: F15.10 Other stimulant abuse, uncomplicated (principal); R07.89 Other chest pain; I44.7 Left bundle-branch block, unspecified; F17.200 Nicotine dependence, unspecified, uncomplicated
CPT/HCPCS: 71046; 80048; 84484; 85025; 93005; 99284; A4216

== ENCOUNTER 2020-05-11 13:36 | Observation (INO) | payer MEDICAID, SELFPAY ==
[2019-08-27 10:02] VITALS: BMI 26.9
[2020-05-11] VITALS (14 sets, daily range): BP systolic 114–150; BP diastolic 61–117; PULSE 54–92; RESP 12–28; TEMP 35.8–37; O2SAT 98–100; BMI 27.5; BMI 26.5
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
[2020-05-11] MEDS: fentaNYL 100 MCG/2 ML Ampul 50 MCG IV ×2 (13:47→14:48)
[2020-05-11] MEDS: Diphth,Pertuss(Acell),Tet Vac 0.5 ML Vial IM (13:48)
--- NOTE | 2020-05-11 13:50 | EKG12_ITS ---
Test Reason : GS Blood Pressure : / mmHG Vent. Rate : 081 BPM Atrial Rate : 081 BPM P-R Int : 146 ms QRS Dur : 156 ms QT Int : 460 ms P-R-T Axes : 000 101 174 degrees QTc Int : 534 ms Normal sinus rhythm Left bundle branch block Abnormal ECG When compared with ECG of 11-MAY-2020 13:50, MANUAL COMPARISON REQUIRED, DATA IS UNCONFIRMED Confirmed by BLANCA MILLER, SHADY ([id number]), scientific publications editor JUSTICE DIXON ([id number] on 05/31/2020 2:35:08 PM Referred By: Confirmed By:SHADY RIOS MD
--- NOTE | 2020-05-11 13:52 | EKG12_ITS ---
Test Reason : Blood Pressure : / mmHG Vent. Rate : 081 BPM Atrial Rate : 081 BPM P-R Int : 164 ms QRS Dur : 152 ms QT Int : 450 ms P-R-T Axes : 094 107 137 degrees QTc Int : 522 ms Suspect arm lead reversal, interpretation assumes no reversal Normal sinus rhythm Left bundle branch block Abnormal ECG When compared with ECG of 27-AUG-2019 10:13, Premature atrial complexes are no longer Present QRS axis Shifted right T wave inversion less evident in Lateral leads Confirmed by BLANCA MILLER, SHADY ([id number]), commercial production editor JUSTICE DIXON ([id number]) on 05/31/2020 2:34:53 PM Referred By: Confirmed By:SHADY RIOS MD
[2020-05-11] MEDS: Cefazolin 1 GM/50 ML BAG IV ×2 (13:57→21:49)
[2020-05-11 13:59] LABS: Absolute Lymphocyte Count 3.55 X10^3/uL (0.83-4.51); Absolute Neutrophil Count 4.2 X10^3/uL (2.0-7.7); Basophil# 0.05 X10^3/uL; Basophil% 0.6 % (0-1); Eosinophil# 0.37 X10^3/uL; Eosinophils% 4.1 % (0-5); Hematocrit 46.2 % (40-54); Hemoglobin 14.7 g/dL (13.0-16.5); Lymphocyte # 3.55 X10^3/ul (4.0); Lymphocyte % 39.6 % (19-41); Mean Corp Hgb Conc 31.8 g/dL (32-36); Mean Corpuscular Hgb 28.4 pg (27.0-32.0); Mean Corpuscular Volume 89.4 fL (80-94); Mean Platelet Vol. 8.2 fl (6.2-12.0); Monocyte# 0.74 X10^3/uL; Monocyte% 8.3 % (0-10); NRBC Flagged by Analyzer 0 % (0-5); Neutrophil # 4.23 X10^3/uL (2.7-7.7); Neutrophil % 47.2 % (47-70); Platelet Count 476 K/mm3 (150-450); RBC Distribution Width CV 12.2 % (11.6-14.6); Red Blood Count 5.17 M/mm3 (4.6-6.2)
[2020-05-11 14:12] LABS: Anion Gap 6 (5-15); BUN 18 mg/dL (7-18); BUN/Creat Ratio 17.3 RATIO (10-20); Calcium,Total 9.2 mg/dL (8.5-10.1); Chloride 108 mmol/L (98-107); Creatinine, Serum 1.04 mg/dL (0.70-1.30); EST Glomerular Filtration Rate 94 mL/min (>60); Est Glom Filt Rate - Afr Amer 114 mL/min (>60); Estimated Creatinine Clearance 96.92 ml/min; Glucose 97 mg/dL (74-106); Potassium 3.6 mmol/L (3.5-5.1); Sodium Level 143 mmol/L (136-145)
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
[2020-05-11 14:31] LABS: Alcohol, Blood (Medical)-Serum < 3.0 mg/dL
[2020-05-11 16:22] LABS: Amphetamine Urine VISTA POSITIVE (<1000 ng/mL); Barbiturate Urine VISTA NEGATIVE (< 200 ng/mL); Benzodiazepine Urine VISTA NEGATIVE (< 200 ng/mL); Cocaine Urine VISTA NEGATIVE (< 300 ng/mL); Ecstacy Urine VISTA POSITIVE (< 500 ng/mL); Methadone Urine VISTA NEGATIVE (< 300 ng/mL); PCP Urine VISTA NEGATIVE (< 25 ng/mL); THC Urine VISTA NEGATIVE (< 50 ng/mL); Vista UDS pH Range 6
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
--- NOTE | 2020-05-11 17:29 | EKG12_ITS ---
Test Reason : FOOT TRAUMA Blood Pressure : / mmHG Vent. Rate : 058 BPM Atrial Rate : 058 BPM P-R Int : 184 ms QRS Dur : 162 ms QT Int : 502 ms P-R-T Axes : 000 100 161 degrees QTc Int : 492 ms Sinus bradycardia Left bundle branch block Abnormal ECG Confirmed by WALE MILLER, RONEL ([id number]), manuscript editor GERMÁN HUTCHINSON ([id number]) on 05/25/2020 9:47:00 A M Referred By: CARLOS Confirmed By:HAL ECHEVARRIA MD
[2020-05-11] MEDS: Bupivacaine 0.25% 30 ML Vial (18:10)
[2020-05-11] MEDS: Lactated Ringers 1,000 ML 100 ML IV (18:30)
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
[2020-05-11] MEDS: Acetaminophen 325 MG Tablet 650 MG PO (20:40)
[2020-05-12 03:58] VITALS: BP 119/79; PULSE 63; RESP 16; TEMP 36.6; O2SAT 99
[2020-05-12] MEDS: Lactated Ringers 1,000 ML 100 ML IV (03:59)
[2020-05-12] MEDS: Cefazolin 1 GM/50 ML BAG IV (06:14)
[2020-05-12] MEDS: Acetaminophen 325 MG Tablet 650 MG PO ×2 (06:20→21:58)
[2020-05-12 10:21] VITALS: BP 124/74; PULSE 88; RESP 20; TEMP 36.7; O2SAT 99
[2020-05-12] MEDS: oxyCODONE 5 MG Tablet PO ×2 (10:31→18:12)
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
[2020-05-12 14:15] VITALS: O2SAT 98
[2020-05-12] MEDS: 0.9% Normal Saline 1,000 ML 15 ML IV (15:31)
[2020-05-12 15:35] VITALS: BP 128/81; PULSE 76; RESP 16; TEMP 36.9; O2SAT 98
[2020-05-12 21:40] VITALS: BP 129/82; PULSE 100; RESP 16; TEMP 36.6; O2SAT 99
[2020-05-13 03:38] VITALS: BP 139/92; PULSE 79; RESP 16; TEMP 36.6; O2SAT 99
[2020-05-13] MEDS: oxyCODONE 5 MG Tablet PO ×2 (05:17→11:23)
[2020-05-13 07:45] VITALS: O2SAT 97
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
[2020-05-13 10:04] VITALS: BP 130/85; PULSE 92; RESP 14; TEMP 36.8; O2SAT 99
--- NOTE | 2020-05-13 12:06 | PCM.DC.POD ---
Discharge Activity: May Not Drive, Use Crutches Weight Bearing Status: No weight bearing - No weightbearing left foot Keep extremity elevated above heart level: Left Leg - Keep left foot elevated as much as possible Call your doctor if your incision/area has: Continuous Slow Oozing, Sudden Increased Bleeding, Foul Smelling Discharge Call your doctor if you observe: Fever of 101 or Higher, Shortness of breath, Chest pain, Calf discomfort, Uncontrolled pain Cleanse incision/area with: Do not get Incision Wet, Keep Dressing Clean & Dry, - - Keep dressing left foot and right leg clean, dry and intact. We will change the dressings at your follow up appointment this week. If you have a concern please call our office at [phone], or call [facility] at [phone], or go to ER. Allergies/Adverse Reactions: Allergies No Known Allergies Allergy (Verified 08/27/19 10:02) Medications to take at Discharge Amoxicillin/Potassium Clav [Augmentin 500-125 Tablet] 1 ea PO Q12H #14 tab 05/13/20 Hydrocodone Bitart/Apap 5-325 [[place] 5MG-325MG] 1 tablet PO Q6H PRN PRN 3 Days #10 tablet 05/13/20 The following prescriptions were given: Amoxicillin/Potassium Clav [Augmentin 500-125 Tablet] 1 ea PO Q12H #14 tab Transmission Status: Pending to [facility] Hydrocodone Bitart/Apap 5-325 [[place] 5MG-325MG] 1 tablet PO Q6H PRN PRN 3 Days #10 tablet PRN Reason: Pain Transmission Status: Sent to [facility] Primary Care Physician: Care Physician,No Primary [Primary Care Provider] - Test Results: Test results from this visit will be discussed in further detail at your follow-up appointment, if applicable. Please Follow Up With: Lacho Garcia DPM - [facility], [address], [address], [place], [place]. [phone]. Call office on Thursday to schedule appointment. When: Thursday or Thursday for dressing change, sooner if needed.
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
[2020-05-13 15:31] VITALS: BP 122/73; PULSE 104; RESP 18; TEMP 36.4; O2SAT 100
== END 2020-05-13 16:09 | disposition home or self-care (01) | DRG 464 ==
LOC: ED 21:14 → SDC 21:14 → MS3 03-19 13:36
PROVIDERS: Admitting Provider Podiatrist; Emergency Provider Emergency Medicine; Visit Provider Podiatrist
PROC: (CPT 11011; principal; 2020-05-11 17:00)
DX: S92.232 Displaced fracture of intermediate cuneiform of left foot (principal); I42.2 Other hypertrophic cardiomyopathy; F15.10 Other stimulant abuse, uncomplicated; W32.0XXA Accidental handgun discharge, initial encounter; Y93.89 Activity, other specified; Y92.9 Unspecified place or not applicable; S92.222B Displaced fracture of lateral cuneiform of left foot, initial encounter for open fracture; S81.811A Laceration without foreign body, right lower leg, initial encounter; F17.210 Nicotine dependence, cigarettes, uncomplicated; Z95.2 Presence of prosthetic heart valve; Z23 Encounter for immunization
CPT/HCPCS: 12002; 11011; 00300; 90686; 99281; G0463; 71045; 73610; 73630; 80048; 80307; 80320; 85025; 87070; 87075; 87205; 90715; 93005; 96361; 96365; 96366; 96367; 96375; 96376; 97802; 99221; 99251; 99252; 99285; 99406; J7030; J7120; A4216; G0378; G0480

== ENCOUNTER 2022-03-01 02:43 | Emergency (ER) | payer MEDICAID, SELFPAY ==
[2022-03-01 02:44] VITALS: BP 118/74; PULSE 115; RESP 18; TEMP 36.2; O2SAT 97; BMI 27.3
--- NOTE | 2022-03-01 02:45 | EKG12_ITS ---
Test Reason : CP Blood Pressure : / mmHG Vent. Rate : 105 BPM Atrial Rate : 105 BPM P-R Int : 152 ms QRS Dur : 156 ms QT Int : 390 ms P-R-T Axes : 048 033 149 degrees QTc Int : 515 ms Sinus tachycardia Left bundle branch block Abnormal ECG Confirmed by BLANCA MILLER, SHADY ([id number]), editorial director GERMÁN HUTCHINSON ([id number]) on 03/03/2022 1:11:56 PM Referred By: ETIENNE Confirmed By:SHADY RIOS MD
--- NOTE | 2022-03-01 02:59 | EX.ED.DYSGE1 ---
HPI History of Present Illness Chief Complaint: Chest Pain Narrative Narrative: Patient is a 26-year-old male with past medical history of hypertrophic cardiomyopathy requiring cardiac surgery at the age of 18. He also states he is a daily methamphetamine user and that he smokes it and denies any IV injection. He states that he used today as he normally does but then shortly after developed mild chest discomfort. He states he is unsure if it was laced with something. Secondary to this he called EMS to bring him in for evaluation. Patient states he also is concerned because of his previous cardiac history with his development of chest discomfort this evening [facility] Home Medications aspirin 81 mg chewable tablet 81 mg PO DAILY 03/01/22 [History Last Taken Unknown] Allergy/AdvReac Type Severity Reaction Status Date / Time No Known Allergies Allergy Verified 03/01/22 02:46 Social History Smoking Status: Current some day smoker tobacco type: cigarettes ROS ROS ED Constitutional Constitutional ED: Denies chills or fever(s) ENT ENT ED: Denies sore throat Cardiovascular Cardiovascular: Reports chest pain; Denies palpitations or racing heartbeat Respiratory/Chest Respiratory/Chest: Denies cough or dyspnea Gastrointestinal Gastrointestinal: Denies abdominal pain, diarrhea, nausea or vomiting Genitourinary Genitourinary ED: Denies dysuria Musculoskeletal Musculoskeletal: Denies myalgias Integumentary Denies rash Neurologic Neurologic: Denies headache(s) Hematologic/Lymphatic Hematologic/Lymphatic: Denies easy bleeding or easy bruising EXAM Physical Exam Const Vital Signs: 03/01/22 02:44 03/01/22 02:47 03/01/22 04:29 Temperature 97.1 F L Temperature Source Temporal Pulse Rate 115 H 86 Respiratory Rate 18 16 Respiratory Effort Normal Respiratory Pattern Normal Blood Pressure 118/74 123/80 H Blood Pressure Mean 88 94 Pulse Ox 97 99 Oxygen Delivery Method Room Air Room Air 03/01/22 04:30 Temperature Temperature Source Pulse Rate 86 Respiratory Rate 16 Respiratory Effort Respiratory Pattern Blood Pressure 123/80 H Blood Pressure Mean Pulse Ox 99 Oxygen Delivery Method Positive well nourished and well developed General Appearance ED: well developed Eyes PERRL and EOMs intact bilaterally Neck supple and no JVD Chest Wall palpation of chest normal Resp normal respiratory effort and clear to auscultation bilaterally Cardio regular rhythm Rate: tachycardic and other Other Details: Slightly tachycardic rate with regular rhythm Radial pulses are plus 2 out of 4 bilaterally are equal and symmetric Carotid pulses are equal as well GI normal to inspection, nondistended, normoactive bowel sounds, non-tender and non-distended GI Narrative: No voluntary guarding or rigidity no pulsatile mass Auscultation: normoactive bowel sounds Palpation: soft Extremity normal to inspection Extremity Narrative: No asymmetric edema no pitting edema negative Homans' sign bilaterally Neuro oriented x3 and CN's II-XII intact bilaterally Sensorium / Orientation: alert Psych mental status grossly normal MDM MDM MDM Narrative Medical decision making narrative: Patient presented to the ER mildly tachycardic but otherwise with stable vitals. He reported that his chest discomfort started after smoking methamphetamines which she does in a daily basis. Therefore there was concern for contaminant ingestion. As he does have a history of hypertrophic cardiomyopathy and previous cardiac surgery a basic work-up was obtained along with urine tox screen. Troponin was normal at 13 and his tox urine is positive for methamphetamines and ecstasy. The patient reported feeling better after a liter of fluid. We discussed obtaining a chest x-ray but he did not want to wait for it at this time as his chest pain has resolved and his work-up shows no signs of heart damage. Therefore patient will be discharged and he was advised to follow-up with his family doctor and to discuss possible drug rehab but at this time as he has no signs of active cardiac disease and his symptoms have resolved he is otherwise safe for discharge Lab Data Attestation: I reviewed the patient's lab results. Labs: Laboratory Results - last 24 hr 03/01/22 03/01/22 03/01/22 02:50 02:50 03:28 WBC 5.4 RBC 4.97 Hgb 14.2 Hct 43.9 MCV 88.3 MCH 28.6 MCHC 32.3 RDW Std Deviation 39.8 RDW Coeff of [place]ight[place] 12.3 Plt Count 295 MPV 8.7 Immature Gran % (Auto) 0.000 Neut % (Auto) 41.6 L Lymph % (Auto) 45.0 H [place] % (Auto) 8.2 Eos % (Auto) 4.8 Baso % (Auto) 0.4 Absolute Neuts (auto) 2.2 Absolute Lymphs (auto) 2.42 Nucleated RBC % 0 Sodium 143 Potassium 3.8 Chloride 110 H Carbon Dioxide 28.0 Anion Gap 5 BUN 13 Creatinine 1.08 Estim Creat Clear Calc 91.74 Est GFR (MDRD) Af Amer 108 Est GFR (MDRD) Non-Af 89 BUN/Creatinine Ratio 12.0 Glucose 95 Calcium 8.6 Magnesium 2.6 Troponin I High Sens 13 Urine Opiates Screen NEGATIVE Urine Methadone Screen NEGATIVE Ur Barbiturates Screen NEGATIVE Ur Phencyclidine Scrn NEGATIVE Ur Amphetamines Screen POSITIVE H MDMA (Ecstasy) Screen POSITIVE H U Benzodiazepines Scrn NEGATIVE Urine Cocaine Screen NEGATIVE U Cannabinoids Screen NEGATIVE Ur Drug Screen Comment Discharge Plan Triage Chief Complaint: Chest Pain ED Provider: Nuno Moulton Dx/Rx/DC Orders Clinical Impression: Acute nonspecific chest pain with low risk of coronary artery disease, Methamphetamine abuse, Hx of hypertrophic cardiomyopathy Instructions: Understanding Methamphetamine ..., ED Chest Pain, Uncertain Cause Prescriptions: No Action aspirin [Baby Aspirin] 81 mg Tablet,Chewable 81 mg PO DAILY Primary Care Provider: Care Physician,No Primary Referrals: Charisma Ansari MD [Med Staff - Player Piano Technician] - 1 Week Care Physician,No Primary [Primary Care Provider] - Disposition Disposition: Home, Self Care Discharge Date/Time: 03/01/22 04:41
[2022-03-01] MEDS: 0.9% Normal Saline 1,000 ML 999 ML IV (03:01)
[2022-03-01 03:09] LABS: Absolute Lymphocyte Count 2.42 X10^3/uL (0.83-4.51); Absolute Neutrophil Count 2.2 X10^3/uL (2.0-7.7); Basophil# 0.02 X10^3/uL; Basophil% 0.4 % (0-1); Eosinophil# 0.26 X10^3/uL; Eosinophils% 4.8 % (0-5); Hematocrit 43.9 % (40-54); Hemoglobin 14.2 g/dL (13.0-16.5); Lymphocyte # 2.42 X10^3/ul (0.83-4.51); Mean Corp Hgb Conc 32.3 g/dL (32-36); Mean Corpuscular Hgb 28.6 pg (27.0-32.0); Mean Corpuscular Volume 88.3 fL (80-94); Mean Platelet Vol. 8.7 fl (6.2-12.0); Monocyte# 0.44 X10^3/uL; Monocyte% 8.2 % (0-10); NRBC Flagged by Analyzer 0 % (0-5); Neutrophil # 2.24 X10^3/uL (2.7-7.7); Neutrophil % 41.6 % (47-70); Platelet Count 295 K/mm3 (150-450); RBC Distribution Width CV 12.3 % (11.6-14.6); RBC Distribution Width SD 39.8 fl (35.1-43.9); Red Blood Count 4.97 M/mm3 (4.6-6.2); White Blood Count 5.4 K/mm3 (4.4-11.0)
[2022-03-01 03:58] LABS: Anion Gap 5 (5-15); BUN 13 mg/dL (7-18); Calcium,Total 8.6 mg/dL (8.5-10.1); Chloride 110 mmol/L (98-107); Creatinine, Serum 1.08 mg/dL (0.70-1.30); EST Glomerular Filtration Rate 89 mL/min (>60); Est Glom Filt Rate - Afr Amer 108 mL/min (>60); Estimated Creatinine Clearance 91.74 ml/min; Glucose 95 mg/dL (74-106); Magnesium 2.6 mg/dL (1.6-2.6); Potassium 3.8 mmol/L (3.5-5.1); Sodium Level 143 mmol/L (136-145); Troponin-I HS 13 pg/mL (3.0-78.0)
[2022-03-01 04:05] LABS: Amphetamine Urine VISTA POSITIVE (<1000 ng/mL); Barbiturate Urine VISTA NEGATIVE (< 200 ng/mL); Benzodiazepine Urine VISTA NEGATIVE (< 200 ng/mL); Cocaine Urine VISTA NEGATIVE (< 300 ng/mL); Ecstacy Urine VISTA POSITIVE (< 500 ng/mL); Methadone Urine VISTA NEGATIVE (< 300 ng/mL); PCP Urine VISTA NEGATIVE (< 25 ng/mL); THC Urine VISTA NEGATIVE (< 50 ng/mL); Vista UDS pH Range 5
[2022-03-01 04:29] VITALS: BP 123/80; PULSE 86; RESP 16; O2SAT 99
[2022-03-01 04:30] VITALS: BP 123/80; PULSE 86; RESP 16; O2SAT 99
== END 2022-03-01 04:41 | disposition home or self-care (01) ==
PROVIDERS: Emergency Provider Emergency Medicine; Visit Provider Emergency Medicine
DX: R07.89 Other chest pain (principal); F15.10 Other stimulant abuse, uncomplicated; F17.210 Nicotine dependence, cigarettes, uncomplicated; Z79.82 Long term (current) use of aspirin
CPT/HCPCS: 80048; 80307; 83735; 84484; 85025; 93005; 99285; A4216

== ENCOUNTER 2022-06-27 14:40 | Emergency (ER) | payer MEDICAID, SELFPAY ==
[2022-06-27 14:41] VITALS: BP 145/119; PULSE 120; RESP 18; TEMP 35.8; O2SAT 100; BMI 26.6
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
[2022-06-27] MEDS: Lidocaine 1% (20 ml mdv) 20 ML Vial INFILT (15:18)
[2022-06-27] MEDS: Diphth,Pertuss(Acell),Tet Vac 0.5 ML Vial IM (15:19)
[2022-06-27] MEDS: Morphine 4 MG/ML Syringe IV (15:21)
[2022-06-27] MEDS: Ondansetron 4 MG/2 ML Vial IV (15:22)
[2022-06-27 16:21] VITALS: BP 109/71; PULSE 79; RESP 16; O2SAT 99
--- NOTE | 2022-06-27 16:26 | NURSING ---
AFTER WOUND NUMBED AND CLEANSED BY - BACITRACIN APPLIED COVERED BY NON STICK DRESSING, 4X4'S AND WRAPPED W/KERLIX. PT PRASHANTH WELL.
== END 2022-06-27 16:27 | disposition home or self-care (01) ==
PROVIDERS: Emergency Provider Emergency Medicine; Visit Provider Emergency Medicine
DX: S81.802A Unspecified open wound, left lower leg, initial encounter (principal); I42.2 Other hypertrophic cardiomyopathy; S89.92XA Unspecified injury of left lower leg, initial encounter; F17.210 Nicotine dependence, cigarettes, uncomplicated; F15.90 Other stimulant use, unspecified, uncomplicated; Z23 Encounter for immunization; V18.4XXA Pedal cycle driver injured in noncollision transport accident in traffic accident, initial encounter
CPT/HCPCS: 90715; 96372; 96374; 96375; 99283; A4216; J2405

== ENCOUNTER 2024-08-04 23:20 | Emergency (ER) | payer MEDICAID, SELFPAY ==
[2024-08-04 23:20] VITALS: BP 170/99; PULSE 82; RESP 18; TEMP 36.9; O2SAT 100; BMI 28.7
[2024-08-04 23:22] VITALS: BP 170/99; PULSE 82; RESP 18; TEMP 36.9; O2SAT 100
--- NOTE | 2024-08-04 23:37 | EX.ED.DYSGE1 ---
HPI History of Present Illness Chief Complaint: Dental Informant: patient Narrative Narrative: Patient is a 28-year-old male with past medical history HCOM. He also reports a history of bad teeth. He reports that over the last 2 to 3 days he has had some left upper dental/jaw pain with no trauma. He states today he noticed some facial swelling and therefore has concern for infection and comes in for evaluation. He denies any history of immunosuppression. He denies difficulty breathing or swallowing. PFSH PFS Medical History Hypertrophic cardiomyopathy Home Medications ?Medication ?Instructions ?Recorded ?Last Taken ?Type aspirin 81 mg chewable tablet 81 mg PO DAILY 03/01/22 Unknown History clindamycin HCl 300 mg capsule 300 mg PO 4X/DAY 10 days #40 caps 08/04/24 Unknown Rx Allergy/AdvReac Type Severity Reaction Status Date / Time No Known Allergies Allergy Verified 08/04/24 23:20 Surgical History H/O heart surgery Social History (Updated 06/27/22 @ 15:[address] Elsie Chanel MD) Smoking Status: Former smoker substance use type: methamphetamine ROS ROS ED Constitutional Constitutional ED: Denies chills or fever(s) ENT ENT ED: Reports other Details: Positive dental pain/facial swelling ; Denies rhinorrhea or sore throat Cardiovascular Cardiovascular: Denies chest pain Respiratory/Chest Respiratory/Chest: Denies cough or dyspnea Gastrointestinal Gastrointestinal: Denies abdominal pain, diarrhea, nausea or vomiting Genitourinary Genitourinary ED: Denies dysuria Musculoskeletal Musculoskeletal: Denies neck pain Integumentary Denies rash Neurologic Neurologic: Denies headache(s) Hematologic/Lymphatic Hematologic/Lymphatic: Denies easy bleeding or easy bruising Allergic/Immunologic Allergic/Immunologic ED: Denies mouth swelling or tongue swelling EXAM Physical Exam Const Vital Signs: 08/04/24 23:20 08/04/24 23:22 08/04/24 23:22 Temperature 98.4 F 98.4 F 98.4 F Temperature Source Oral Oral Oral Pulse Rate 82 82 82 Respiratory Rate 18 18 18 Blood Pressure 170/99 H 170/99 H 170/99 H Blood Pressure Mean 122 122 122 Pulse Ox 100 100 100 Oxygen Delivery Method Room Air Room Air Room Air Positive well nourished and well developed General Appearance ED: well developed; Negative for pallor HEENT HEENT Narrative: Multiple dental caries are present. There is mild soft tissue swelling to the left upper cheek near the nasolabial fold. However on internal exam there is no obvious drainable dental abscess noted. No tongue or lip swelling no oral lesions no airway edema or compromise. No signs of ANUG Eyes PERRL and EOMs intact bilaterally Neck supple Neck Narrative: No brawny edema in the submental space to suggest Ross's angina Resp normal respiratory effort and clear to auscultation bilaterally Cardio regular rate and regular rhythm Extremity normal to inspection Neuro oriented x3, CN's II-XII intact bilaterally and no sensory deficits noted Sensorium / Orientation: alert Motor Exam: strength 5/5 throughout Psych mental status grossly normal Skin no rashes or lesions noted Skin Narrative: Soft tissue swelling to the left upper face near the nasolabial fold without overlying erythema or warmth General Skin Exam: Negative for jaundice or pallor MDM MDM MDM Narrative Medical decision making narrative: Patient presented to the ER hypertensive but otherwise with stable vitals. He reported a few days of intermittent dental pain that progressed today to a constant throbbing manner and facial swelling. He does not have signs of ANUG or Ross angina by physical exam. Without airway edema or compromise or oral lesions I do not feel there is need for imaging or laboratory studies. There is no obvious drainable abscess on physical exam either and therefore do not feel incision and drainage would benefit him at this time. Therefore he was given a dental block as document below for pain relief and started on clindamycin for infection resolution. He does state he has a follow-up appointment with his dentist in a few weeks but understands that if antibiotics do not resolve the developing abscess/infection he will need to return to the ER for potential imaging labs and incision and drainage. Patient was given a left superior alveolar dental block using 1.5 mL of 2% lidocaine with epinephrine and 1.5 mL of 0.5% Marcaine. Patient achieved good anesthesia with the injection and tolerated the procedure well without complication. History & Record Review Discussion w/independent historian: Patient Discharge Plan Triage Chief Complaint: Dental ED Provider: Nuno Moulton Dx/Rx/DC Orders Clinical Impression: Dental caries, Dental abscess, Hypertrophic obstructive cardiomyopathy (HOCM), Hypertension Instructions: Dental Abscess, Understanding Tooth Decay Prescriptions: New clindamycin HCl 300 mg capsule 300 mg PO 4X/DAY 10 Days Qty: 40 0RF No Action aspirin [Baby Aspirin] 81 mg Tablet,Chewable 81 mg PO DAILY Primary Care Provider: Care Physician,No Primary Referrals: Care Physician,No Primary [Primary Care Provider] - Activity Restrictions/Additional Instructions: Please take the antibiotic as directed to resolve your dental infection. Continue with Tylenol and/or Motrin for pain control. Follow-up with your dentist for repeat evaluation and return to the ER should you have any further concerns or worsening symptoms despite antibiotic use Print Language: Tamazight Disposition Disposition: Home, Self Care
[2024-08-04] MEDS: Lidocaine 2% /Epi 1:100 (20ml) 20 ML VIAL INFILT (23:39)
[2024-08-04] MEDS: Clindamycin HCl 150 MG Capsule 300 MG PO (23:39)
[2024-08-05] MEDS: Bupivacaine Mpf 0.5% 30 ML VIAL INFILT
[2024-08-05 00:01] VITALS: BP 165/70; PULSE 85; RESP 18; TEMP 36.7; O2SAT 98
== END 2024-08-05 00:02 | disposition home or self-care (01) ==
PROVIDERS: Emergency Provider Emergency Medicine; Visit Provider Emergency Medicine
DX: K04.7 Periapical abscess without sinus (principal); I42.1 Obstructive hypertrophic cardiomyopathy; K02.9 Dental caries, unspecified; I10 Essential (primary) hypertension; Z87.891 Personal history of nicotine dependence; Z79.82 Long term (current) use of aspirin
CPT/HCPCS: 64400; 64999; 99282